=== PATIENT | female | born 1975 | race Caucasian/White ===

== ENCOUNTER 2018-05-23 13:36 | Emergency (ER) | payer MEDICAID ==
[2018-05-23] MEDS: KETOROLAC 30 MG INJ IM (15:44)
== END 2018-05-23 17:22 | disposition home or self-care (01) ==
LOC: FTE 13:36
DX: S60.021A Contusion of right index finger without damage to nail, initial encounter (principal); S60.022A Contusion of left index finger without damage to nail, initial encounter; X58.XXXA Exposure to other specified factors, initial encounter; Y92.9 Unspecified place or not applicable
CPT/HCPCS: 73130; 73130-50; 81025; 96372; 99284-25

== ENCOUNTER 2018-08-16 17:56 | Emergency (ER) | payer MEDICAID ==
[2018-08-16] MEDS: ONDANSETRON (ODT) 4 MG TAB ODT (19:44)
[2018-08-16] MEDS: KETOROLAC 60 MG INJ IM (19:48)
== END 2018-08-16 20:10 | disposition home or self-care (01) ==
LOC: FTE 17:56
DX: G43.909 Migraine, unspecified, not intractable, without status migrainosus (principal)
CPT/HCPCS: 81025; 96372; 99284-25